=== PATIENT | male | born 1980 | race Hispanic/Latino ===

== ENCOUNTER → 2022-12-25 | Outpatient (CLI) | payer OTHER | END | disposition home or self-care (01) | LOC: RAH 14:04 | PROVIDERS: ATTEND Physical Medicine & Rehabilitation | DX: M43.17 Spondylolisthesis, lumbosacral region (principal); M47.817 Spondylosis without myelopathy or radiculopathy, lumbosacral region; M48.07 Spinal stenosis, lumbosacral region | CPT/HCPCS: 72148 ==